=== PATIENT | male | born 1995 ===

== ENCOUNTER 2017-02-03 05:33 | Emergency (ER) | payer SELFPAY ==
--- NOTE | 2017-02-03 06:09 | ED PDOC ---
HPI: Psych/Substance Abuse Time Seen by Provider: 02/03/17 05:44 Chief Complaint (Nursing): Alcohol Ingestion Chief Complaint (Provider): Alcohol Intoxication History/Exam Limitations: no limitations Onset/Duration Of Symptoms: Hrs Additional Complaint(s): Albert Shaffer is a 21 year old male with no past medical history who presents to the ED for evaluation of alcohol intoxication. Patient states he was brought here against his will. Reports he got into a verbal altercation with the local business account executive and was compelled to come her for evaluation. Of note , patient requested to take a taxi home. Past Medical History Reviewed: Historical Data, Nursing Documentation, Vital Signs - Medical History PMH: No Chronic Diseases - Surgical History Surgical History: No Surg Hx - Family History Family History: States: No Known Family Hx - Social History Alcohol: Social Review of Systems ROS Statement: Except As Marked, All Systems Reviewed And Found Negative Physical Exam - Reviewed Nursing Documentation Reviewed: Yes Vital Signs Reviewed: Yes - Physical Exam Appears: Positive for: Well, Non-toxic, No Acute Distress Head Exam: Positive for: ATRAUMATIC, NORMAL INSPECTION, NORMOCEPHALIC Skin: Positive for: Normal Color, Warm, Dry Eye Exam: Positive for: Normal appearance, EOMI, PERRL ENT: Positive for: Normal ENT Inspection Neck: Positive for: Normal, Painless ROM, Supple Cardiovascular/Chest: Positive for: Regular Rate, Rhythm. Negative for: Murmur , Tachycardia Respiratory: Positive for: Normal Breath Sounds. Negative for: Wheezing, Respiratory Distress Gastrointestinal/Abdominal: Positive for: Normal Exam Rectal: Positive for: Deferred Extremity: Positive for: Normal ROM Lymphatic: Positive for: Deferred Neurologic/Psych: Positive for: Alert, Oriented, Gait (Steady), Other (Cleared speech) Medical Decision Making Medical Decision Makin: Initial Impression: 21 year old male brought in for alcohol intoxication without evidence of alcohol related impairment Initial Plan: Patient requested to take a taxi home. Stable upon discharge. Diagnosis: Alcohol use Scribe Attestation: Documented by Luisa Schultz acting as a scribe for Carter Hernandez MD. Provider Scribe Attestation: All medical record entries made by the Scribe were at my direction and personally dictated by me. I have reviewed the chart and agree that the record accurately reflects my personal performance of the history, physical exam, medical decision making, and the department course for this patient. I have also personally directed, reviewed, and agree with the discharge instructions and disposition. Disposition - Clinical Impression Clinical Impression: Alcohol use - Patient ED Disposition Is Patient to be Admitted: No - Disposition Disposition: Routine/Home Disposition Time: 06:00 Condition: STABLE
== END 2017-02-03 05:52 | disposition home or self-care (01) ==
LOC: H.ER 05:33
DX: F10.129 Alcohol abuse with intoxication, unspecified (principal)